=== PATIENT | female | born 1985 | race Two or more races ===

== ENCOUNTER 2018-06-30 00:55 | Inpatient (IN) | payer MEDICAID ==
[2018-06-30] VITALS (15 sets, daily range): BP systolic 81–116; BP diastolic 50–72
[~2018-06-30] VITALS: Ht 167.6 cm; Wt 110.3 kg
[2018-06-30] MEDS ORDERED: SODIUM CHLORIDE FLUSH 10ML SYR IVF ONE (01:00)
[2018-06-30] MEDS ORDERED: SODIUM CHLORIDE 0.9% 1,000ML IVBOLUS ONE (01:00)
[2018-06-30] MEDS ORDERED: METOCLOPRAMIDE 5 MG/ML, 2ML IVPush ONE (01:00)
[2018-06-30] MEDS ORDERED: METOCLOPRAMIDE 5 MG/ML, 2ML ONE (01:10)
[2018-06-30 01:31] LABS: ALANINE AMINOTRANSFERASE 33 U/L (12-78); ALBUMIN 3.2 g/dL (3.4-5.0); ANION GAP 10 mmol/L (5-15); CALCIUM 7.7 mg/dL (8.5-10.1); CHLORIDE 108 mmol/L (98-107); CREATININE 0.78 mg/dL (0.55-1.02)
[2018-06-30 01:34] LABS: ALKALINE PHOSPHATASE 67 U/L (45-117); BILIRUBIN,TOTAL 0.6 mg/dL (0.2-1.0); TOTAL PROTEIN 6.9 g/dL (6.4-8.2)
[2018-06-30 01:46] LABS: MEAN CORPUSCULAR HEMOGLOBIN 15.8 pg (27.0-34.8); MEAN PLATELET VOLUME 8.6 fL (7.4-10.4); PLATELET COUNT 195 x10^3/uL (130-400); RED BLOOD COUNT 3.67 x10^6/uL (3.82-5.3); RED CELL DISTRIBUTION WIDTH 18.8 % (9.6-15.2)
[2018-06-30 01:47] LABS: MEAN CORPUSCULAR HGB CONC 28.1 g/dL (32.4-35.8)
[2018-06-30 01:49] LABS: MD YES
[2018-06-30 01:50] LABS: HCG UR SG 1.018 (1.003-1.030)
[2018-06-30 01:56] LABS: CULTURE INDICATED? NO; MICROSCOPIC INDICATED
[2018-06-30 01:59] LABS: ANISOCYTOSIS 2+; HYPOCHROMIA 1+; LYMPH#(MANUAL) 0.58 x10^3/uL (1-3.4); LYMPHS% (MANUAL) 9 % (22-44); MICROCYTOSIS 2+; MONOS#(MANUAL) 0.13 x10^3/uL (0.3-2.7); MONOS% (MANUAL) 2 % (2-9); OVALOCYTES 1+; POLYCHROMASIA 1+; SCHISTOCYTES 1+; SEGS% (MANUAL) 89 % (42-75); TEAR DROPS 1+
[2018-06-30 02:01] LABS: <PLATELET ESTIMATE> ADEQUATE; LARGE PLATELETS 1+
[2018-06-30] MEDS ORDERED: THYR90TA4 PO (02:55)
[2018-06-30] MEDS ORDERED: ONDANSETRON 2MG/ML, 2ML IVPush PRN (04:30)
[2018-06-30] MEDS ORDERED: ACETAMINOPHEN 325 MG TABLET PO PRN (04:30)
[2018-06-30] MEDS ORDERED: hydrALAzine 20 MG/ML, 1ML IVPush PRN (04:30)
[2018-06-30] MEDS ORDERED: POTASSIUM CHLORIDE 40 MEQ in SODIUM CHLORIDE 0.9% 500 ML IV ONE (05:00)
[2018-06-30] MEDS ORDERED: OMNIPAQUE 350 MG/ML, 100ML BOTTLE ONE (05:52)
[2018-06-30] MEDS: SODIUM CHLORIDE 0.9% 1,000 ML IV SCH ×2 (06:10→18:06)
[2018-06-30] MEDS: PANTOPRAZOLE 40 MG IV IVPush SCH ×2 (06:10→16:43)
[2018-06-30] MEDS: THYROID 30 MG TABLET PO SCH ×2 (09:00→21:59)
[2018-06-30 09:19] LABS: ABSOLUTE RETICS # 0.048 x10^6/uL (0.5-2.5); RED BLOOD COUNT 3.89 x10^6/uL (3.82-5.3); RETICULOCYTE COUNT % 1.24 % (0.5-1.5)
[2018-06-30] MEDS ORDERED: GOLYTELY 4,000ML ORAL.SOL PO ONE (10:00)
[2018-07-01 02:10] VITALS: BP 96/60
[2018-07-01 04:44] LABS: ANION GAP 6 mmol/L (5-15); CHLORIDE 112 mmol/L (98-107); CREATININE 0.65 mg/dL (0.55-1.02)
[2018-07-01 05:00] LABS: MEAN CORPUSCULAR HEMOGLOBIN 18.8 pg (27.0-34.8); MEAN CORPUSCULAR VOLUME 62.8 fL (80-100); MEAN PLATELET VOLUME 10.1 fL (7.4-10.4); PLATELET COUNT 165 x10^3/uL (130-400); RED BLOOD COUNT 3.86 x10^6/uL (3.82-5.3)
[2018-07-01] MEDS: PANTOPRAZOLE 40 MG IV IVPush SCH (05:02)
[2018-07-01 05:47] LABS: MD YES
[2018-07-01 05:49] LABS: EOS#(MANUAL) 0.05 x10^3/uL (0.0-0.4); EOS% (MANUAL) 1 % (1-7); MONOS#(MANUAL) 0.25 x10^3/uL (0.3-2.7); MONOS% (MANUAL) 5 % (2-9)
[2018-07-01 05:50] LABS: ANISOCYTOSIS 2+; BAND#(MANUAL) 0.05 x10^3/uL; BANDS%(MANUAL) 1 % (0-7); HYPOCHROMIA 1+; LYMPH#(MANUAL) 0.98 x10^3/uL (1-3.4); LYMPHS% (MANUAL) 20 % (22-44); MICROCYTOSIS 2+; OVALOCYTES 1+; SEG#(MANUAL) 3.58 x10^3/uL (1.8-6.8); SEGS% (MANUAL) 73 % (42-75)
[2018-07-01 05:51] LABS: POLYCHROMASIA 1+; TEAR DROPS 1+
[2018-07-01 05:53] LABS: <PLATELET ESTIMATE> ADEQUATE; LARGE PLATELETS 1+
[2018-07-01 07:45] VITALS: BP 96/61
[2018-07-01] MEDS ORDERED: FENTANYL PF 100 MCG/2ML ONE (07:49)
[2018-07-01] MEDS ORDERED: MIDAZOLAM 1 MG/ML, 2ML ONE (07:49)
[2018-07-01] MEDS ORDERED: SUCCINYLCHOLINE 20 MG/ML, 10ML ONE (08:31)
[2018-07-01] MEDS ORDERED: ROCURONIUM 10MG/ML,5ML ONE (08:31)
[2018-07-01] MEDS ORDERED: ONDANSETRON 2MG/ML, 2ML ONE (08:31)
[2018-07-01] MEDS ORDERED: PROPOFOL 10 MG/ML, 20ML ONE (08:31)
[2018-07-01] MEDS ORDERED: IRON SUCROSE COMPLEX 100MG/5ML IV SCH (10:00)
[2018-07-01] MEDS: THYROID 30 MG TABLET PO SCH (10:42)
[2018-07-01] MEDS ORDERED: FERR325T18 PO (13:10)
== END 2018-07-01 14:30 | disposition home or self-care (01) | DRG 379 ==
LOC: ED 03:26 → EDIP 03:59 → 3NW 04:50
PROVIDERS: ADMIT Internal Medicine; ATTEND Internal Medicine
PROC: 30233N1 Transfusion of Nonautologous Red Blood Cells into Peripheral Vein, Percutaneous Approach (ICD-10-PCS; 2018-06-30)
PROC: 0DJD8ZZ Inspection of Lower Intestinal Tract, Via Natural or Artificial Opening Endoscopic (ICD-10-PCS; 2018-07-01)
PROC: 0DB98ZX Excision of Duodenum, Via Natural or Artificial Opening Endoscopic, Diagnostic (ICD-10-PCS; principal; 2018-07-01 08:00)
DX: K92.2 Gastrointestinal hemorrhage, unspecified (principal); D50.0 Iron deficiency anemia secondary to blood loss (chronic); E87.6 Hypokalemia; E89.0 Postprocedural hypothyroidism; N92.0 Excessive and frequent menstruation with regular cycle; Z88.0 Allergy status to penicillin
CPT/HCPCS: 36415; 36430; 74177; 80048; 80053; 81001; 81025; 82728; 83540; 83550; 83690; 83735; 84100; 84443; 85014; 85018; 85025; 85045; 86850; 86900; 86923; 88305; 96361; 96374; 99285; G0378; J1756; J2250; J2405; J2704; J3010; J3480; Q9967; C9113; J0330; J2765; J7030; J7040; P9016

== ENCOUNTER 2018-08-02 21:09 | Emergency (ER) | payer MEDICAID ==
[~2018-08-02] VITALS: Ht 180.3 cm; Wt 111.7 kg
[~2018-08-02 21:09] MED LIST: FERR325T18 PO; THYR90TA4 PO
[2018-08-02 21:53] LABS: MEAN CORPUSCULAR HEMOGLOBIN 21.1 pg (27.0-34.8); MEAN CORPUSCULAR VOLUME 68.1 fL (80-100); MEAN PLATELET VOLUME 10.4 fL (7.4-10.4); PLATELET COUNT 149 x10^3/uL (130-400); RED BLOOD COUNT 4.39 x10^6/uL (3.82-5.3); RED CELL DISTRIBUTION WIDTH 27.8 % (9.6-15.2)
[2018-08-02 21:57] LABS: MD YES
[2018-08-02 22:04] LABS: ALANINE AMINOTRANSFERASE 33 U/L (12-78); ALBUMIN 3.3 g/dL (3.4-5.0); ANION GAP 7 mmol/L (5-15); CALCIUM 8.1 mg/dL (8.5-10.1); CHLORIDE 108 mmol/L (98-107); CREATININE 0.71 mg/dL (0.55-1.02)
[2018-08-02 22:07] LABS: EOS#(MANUAL) 0.04 x10^3/uL (0.0-0.4); EOS% (MANUAL) 1 % (1-7); LYMPH#(MANUAL) 1.07 x10^3/uL (1-3.4); LYMPHS% (MANUAL) 29 % (22-44); MONOS#(MANUAL) 0.33 x10^3/uL (0.3-2.7); MONOS% (MANUAL) 9 % (2-9); SEG#(MANUAL) 2.26 x10^3/uL (1.8-6.8); SEGS% (MANUAL) 61 % (42-75)
[2018-08-02 22:08] LABS: ALKALINE PHOSPHATASE 78 U/L (45-117); ANISOCYTOSIS 2+; BILIRUBIN,TOTAL 0.6 mg/dL (0.2-1.0); HYPOCHROMIA 1+; MICROCYTOSIS 2+; OVALOCYTES 1+; POLYCHROMASIA 1+; TOTAL PROTEIN 7.1 g/dL (6.4-8.2)
[2018-08-02 22:09] LABS: <PLATELET ESTIMATE> ADEQUATE; LARGE PLATELETS 1+
[2018-08-02 22:20] VITALS: BP 111/71
== END 2018-08-02 22:59 | disposition home or self-care (01) ==
LOC: ED 22:27
DX: R42 Dizziness and giddiness (principal); R55 Syncope and collapse; R53.1 Weakness; E03.9 Hypothyroidism, unspecified; W07.XXXA Fall from chair, initial encounter; Y93.89 Activity, other specified; Y92.89 Other specified places as the place of occurrence of the external cause; Y99.8 Other external cause status
CPT/HCPCS: 36415; 80053; 84436; 84443; 84703; 85025; 86850; 86900; 93005; 99284